=== PATIENT | male | born 1990 | race Caucasian/White ===

== ENCOUNTER 2020-12-12 21:06 | Emergency (ER) | payer OTHER ==
[~2020-12-12] VITALS: Ht 172.7 cm; Wt 45.4 kg
--- NOTE | 2020-12-12 22:38 | NUR ---
Pt bibself C/O rt wrist, ankle, and ear pain x1 week, worse today. Pt aaox4 breathing evenly and unlabored. Pt states he has been "working on his IPad more, so his wrists are hurting". Pt attached to monitor and pox. Will continue to monitor
--- NOTE | 2020-12-12 22:38 | NUR ---
Note tammy in EDM - 12/12/20 at 2258 by RODNEY pt bibra c/o gen weakness, n/v/d xtoday. pt aaox4 breathing evenly and unlabored. Pt skin warm, dry, and intact. Pt attached to monitor and pox. pt given blanket and call light within reach
--- NOTE | 2020-12-12 22:50 | NUR ---
emt at bedside for wrist immobilizer placement
--- NOTE | 2020-12-12 23:01 | NUR ---
Patient discharged to home in stable condition. Written and verbal after care instructions given. Patient verbalizes understanding of instruction. pt ambulatory with a steady gait
[2020-12-12] MEDS ORDERED: IBUP-1957 PO (23:02)
[2020-12-13 02:36] VITALS: BP 130/85
== END 2020-12-12 23:01 | disposition home or self-care (01) ==
LOC: ER 21:12
DX: G56.01 Carpal tunnel syndrome, right upper limb (principal); M62.838 Other muscle spasm